=== PATIENT | male | born 1960 | race Caucasian/White ===

== ENCOUNTER 2018-11-19 20:26 | Inpatient (IN) | payer OTHER ==
[~2018-11-19] VITALS: Ht 193 cm; Wt 142.0 kg
[~2018-11-19 20:26] MED LIST: IBUP-1969 PO; METF-379 PO; NEU300 PO; SIMV10TA2 PO
[2018-11-19 20:36] VITALS: BP_SYST 141
[2018-11-19] MEDS ORDERED: PIPERACILLIN/TAZO 3.38 GM in D5W 50 ML IV ONE (21:00)
[2018-11-19] MEDS ORDERED: VANCOMYCIN HCL 1,000 MG in D5W 250 ML IV ONE (21:00)
[2018-11-19] MEDS ORDERED: NS 1000 ML IV.SOLN IV ONE (21:00)
[2018-11-19] MEDS ORDERED: ACETAMINOPHEN 325 MG TABLET PO ONE (21:00)
[2018-11-19 21:01] LABS: BILIRUBIN,URINE NEGATIVE (NEGATIVE); BLOOD, URINE 2+ (NEGATIVE); CLARITY/URINE SL CLOUDY (CLEAR); COLOR,URINE YELLOW (YELLOW); GLUCOSE,URINE 3+ (NEGATIVE); KETONES,URINE 1+ (NEGATIVE); LEUKOCYTE ESTERASE ,URINE 1+ (NEGATIVE); NITRITE, URINE POSITIVE (NEGATIVE); PH,URINE 5.5 (5.0-8.0); PROTEIN URINE 1+ (NEGATIVE); UROBILINOGEN,URINE 0.2 (0.2-1.0)
[2018-11-19 21:06] LABS: BACTERIA,URINE MODERATE /HPF (None Seen); WBC,URINE 50-80 /HPF (0-3)
[2018-11-19 21:21] LABS: HEMATOCRIT 40.7 % (36-54); HEMOGLOBIN 14.1 g/dL (14.0-18.0); MEAN CORPUSCULAR HEMOGLOBIN 31 pg (27-31); MEAN CORPUSCULAR HGB CONC 35 % (32-36); MEAN CORPUSCULAR VOLUME 89 fL (79.0-98.0); PLATELET COUNT (AUTO) 234 K/uL (130-430); RED BLOOD CELL COUNT(AUTO) 4.59 MIL/uL (4.2-6.2); RED CELL DISTRIBUTION WIDTH 13.3 % (9.0-15.0); WHITE BLOOD COUNT (AUTO) 17.9 K/uL (4.8-10.8)
[2018-11-19] MEDS ORDERED: PIPERACILLIN/TAZOBACTAM 3.375 GM/VIAL (ZOSYN) IV ONE (21:24)
[2018-11-19 21:36] LABS: CALCIUM 8.8 mg/dL (8.4-11.0); CREATININE 1.13 mg/dL (0.55-1.30); POTASSIUM 3.5 mmol/L (3.5-5.1)
[2018-11-19] MEDS ORDERED: VANCOMYCIN HCL 1000 MG/VIAL IV ONE (21:36)
[2018-11-19 21:38] LABS: INR 1.1 (0.80-1.20); PROTHROMBIN TIME 10.9 SECS (9.5-12.5)
[2018-11-19 21:40] LABS: ALBUMIN 3.3 g/dL (3.4-4.8); TOTAL BILIRUBIN 1.2 mg/dL (0.0-1.0)
[2018-11-19] MEDS ORDERED: GABA800T PO (21:44)
[2018-11-19] MEDS ORDERED: MULT-1089 PO (21:44)
[2018-11-19] MEDS ORDERED: ASCO500T20 PO (21:44)
[2018-11-19] MEDS ORDERED: AMIT25TA9 PO (21:44)
[2018-11-19] MEDS ORDERED: GLU850 PO (21:44)
[2018-11-19] MEDS ORDERED: SIMV10TA2 PO (21:44)
[2018-11-19] MEDS ORDERED: HYDR25TA4 PO (21:45)
[2018-11-19] MEDS ORDERED: LUTE20TA PO (21:45)
[2018-11-19] MEDS ORDERED: RIVA20TA PO (21:45)
[2018-11-19] MEDS ORDERED: TAMS-11 PO (21:45)
[2018-11-19] MEDS ORDERED: SAXA5TAB PO (21:45)
[2018-11-19] MEDS ORDERED: GLIM1TAB PO (21:45)
[2018-11-19] MEDS ORDERED: MAGN400T10 PO (21:45)
[2018-11-19] MEDS ORDERED: FOLI-43 PO (21:45)
[2018-11-19] MEDS ORDERED: KRIL1CAP22 PO (21:45)
[2018-11-19] MEDS ORDERED: VITD2000 PO (21:45)
[2018-11-19 21:49] LABS: BAND % (MANUAL) 8 % (0-6); LYMPHOCYTES % (MANUAL) 14 % (20-46)
[2018-11-19 21:50] LABS: BASOPHILS % (MANUAL) 0 % (0-2); EOSINOPHILS % (MANUAL) 0 % (0-7); MONOCYTES % (MANUAL) 10 % (0-11)
[2018-11-20] VITALS (8 sets, daily range): BP systolic 126–150
[2018-11-20] MEDS ORDERED: ALBUTEROL SULFATE 0.083% 2.5 MG/3 ML VIAL.NEB INH PRN (00:15)
[2018-11-20] MEDS: NACL 0.9% 1,000 ML IV SCH ×4 (00:49→23:30)
[2018-11-20] MEDS: HYDROcodone/ACETAMIN 10-325 MG TAB PO PRN (03:35)
[2018-11-20] MEDS ORDERED: PIPERACILLIN/TAZOBACTAM 3.375 GM/VIAL (ZOSYN) IV ONE (05:39)
[2018-11-20] MEDS ORDERED: ZOSYN (PIPERACILLIN/TAZO) 3.375 GM in DEX-ISO (50ml) IV SCH (06:00)
[2018-11-20] MEDS: PIPERACILLIN/TAZO 3.375/DEX-IS 50 ML IV SCH ×4 (06:15→23:29)
[2018-11-20 06:42] LABS: BASOPHILS # (AUTO) 0.1 K/uL (0.0-0.2); BASOPHILS % (AUTO) 0.4 % (0.0-2.0); EOSINOPHILS # (AUTO) 0.1 K/uL (0.0-0.4); EOSINOPHILS % (AUTO) 0.9 % (0.0-4.0); HEMATOCRIT 37.6 % (36-54); HEMOGLOBIN 12.6 g/dL (14.0-18.0); LYMPHOCYTES # (AUTO) 1.9 K/uL (1.0-5.5); MEAN CORPUSCULAR HEMOGLOBIN 30 pg (27-31); MEAN CORPUSCULAR HGB CONC 34 % (32-36); MEAN CORPUSCULAR VOLUME 89 fL (79.0-98.0); MONOCYTES # (AUTO) 1.5 K/uL (0.0-1.0); MONOCYTES % (AUTO) 9.1 % (1.7-9.3); NEUTROPHILS # (AUTO) 12.6 K/uL (1.8-7.7); NEUTROPHILS % (AUTO) 77.6 % (40.0-70.0); PLATELET COUNT (AUTO) 200 K/uL (130-430); RED CELL DISTRIBUTION WIDTH 12.9 % (9.0-15.0); WHITE BLOOD COUNT (AUTO) 16.2 K/uL (4.8-10.8)
[2018-11-20] MEDS: HYDROcodone/ACETAMIN 5-325 MG TAB (NORCO/ VICODIN) PO PRN ×3 (07:39→17:18)
[2018-11-20 08:05] LABS: ALBUMIN 2.8 g/dL (3.4-4.8); CALCIUM 8.5 mg/dL (8.4-11.0); CREATININE 0.75 mg/dL (0.55-1.30); POTASSIUM 3.4 mmol/L (3.5-5.1); TOTAL BILIRUBIN 1.3 mg/dL (0.0-1.0)
[2018-11-20] MEDS: AMITRIPTYLINE HCL 25 MG TABLET (ELAVIL) PO SCH (08:38)
[2018-11-20] MEDS: SIMVASTATIN 10 MG TABLET PO SCH (08:38)
[2018-11-20] MEDS: FOLIC ACID 1 MG TABLET PO SCH (08:39)
[2018-11-20] MEDS: GLIMEPIRIDE 2 MG TABLET PO SCH (08:39)
[2018-11-20] MEDS: GABAPENTIN 400 MG CAPSULE PO SCH ×4 (08:39→20:04)
[2018-11-20] MEDS: TAMSULOSIN HCL 0.4 MG CAP PO SCH (08:40)
[2018-11-20] MEDS: INSULIN REGULAR, HUMAN 100 UNITS/ML, 10 ML VIAL (novoLIN R) SUBCUT PRN ×3 (11:46→20:06)
[2018-11-20] MEDS: RIVAROXABAN 10 MG TABLET PO SCH (17:28)
[2018-11-21 01:31] VITALS: BP_SYST 120
[2018-11-21 01:34] VITALS: BP_SYST 142
[2018-11-21] MEDS: ACETAMINOPHEN 325 MG TABLET PO PRN ×3 (02:19→15:45)
[2018-11-21] MEDS: PIPERACILLIN/TAZO 3.375/DEX-IS 50 ML IV SCH ×4 (06:09→23:06)
[2018-11-21] MEDS: NACL 0.9% 1,000 ML IV SCH ×3 (06:10→23:05)
[2018-11-21] MEDS: INSULIN REGULAR, HUMAN 100 UNITS/ML, 10 ML VIAL (novoLIN R) SUBCUT PRN ×4 (06:13→19:58)
[2018-11-21 06:25] LABS: BASOPHILS # (AUTO) 0.1 K/uL (0.0-0.2); BASOPHILS % (AUTO) 0.4 % (0.0-2.0); EOSINOPHILS # (AUTO) 0.1 K/uL (0.0-0.4); HEMATOCRIT 35.4 % (36-54); HEMOGLOBIN 12.1 g/dL (14.0-18.0); LYMPHOCYTES # (AUTO) 1.9 K/uL (1.0-5.5); LYMPHOCYTES % (AUTO) 13.9 % (20.5-51.5); MEAN CORPUSCULAR HEMOGLOBIN 31 pg (27-31); MEAN CORPUSCULAR HGB CONC 34 % (32-36); MEAN CORPUSCULAR VOLUME 90 fL (79.0-98.0); MONOCYTES # (AUTO) 1.6 K/uL (0.0-1.0); MONOCYTES % (AUTO) 11.3 % (1.7-9.3); NEUTROPHILS # (AUTO) 10.1 K/uL (1.8-7.7); NEUTROPHILS % (AUTO) 73.4 % (40.0-70.0); PLATELET COUNT (AUTO) 191 K/uL (130-430); RED BLOOD CELL COUNT(AUTO) 3.93 MIL/uL (4.2-6.2); RED CELL DISTRIBUTION WIDTH 12.8 % (9.0-15.0); WHITE BLOOD COUNT (AUTO) 13.7 K/uL (4.8-10.8)
[2018-11-21 07:20] LABS: ALBUMIN 2.7 g/dL (3.4-4.8); CALCIUM 8.2 mg/dL (8.4-11.0); CREATININE 0.91 mg/dL (0.55-1.30); POTASSIUM 3.5 mmol/L (3.5-5.1); TOTAL BILIRUBIN 1.2 mg/dL (0.0-1.0)
[2018-11-21 08:12] VITALS: BP_SYST 141
[2018-11-21] MEDS: FOLIC ACID 1 MG TABLET PO SCH (08:31)
[2018-11-21] MEDS: AMITRIPTYLINE HCL 25 MG TABLET (ELAVIL) PO SCH (08:32)
[2018-11-21] MEDS: SIMVASTATIN 10 MG TABLET PO SCH (08:32)
[2018-11-21] MEDS: GLIMEPIRIDE 2 MG TABLET PO SCH (08:32)
[2018-11-21] MEDS: GABAPENTIN 400 MG CAPSULE PO SCH ×4 (08:32→19:59)
[2018-11-21] MEDS: TAMSULOSIN HCL 0.4 MG CAP PO SCH (08:34)
[2018-11-21] MEDS ORDERED: GENTAMICIN SULFATE 300 MG in NS 100 ML IV ONE (09:30)
[2018-11-21] MEDS ORDERED: POLYETHYLENE GLYCOL 3350, 17 GM/ POWD.PACK PO ONE (10:00)
[2018-11-21] MEDS ORDERED: MINERAL OIL 30 ML UDC PO ONE (10:00)
[2018-11-21 12:36] VITALS: BP_SYST 136
[2018-11-21 15:59] VITALS: BP_SYST 116
[2018-11-21] MEDS: HYDROcodone/ACETAMIN 5-325 MG TAB (NORCO/ VICODIN) PO PRN (17:00)
[2018-11-21] MEDS: RIVAROXABAN 10 MG TABLET PO SCH (17:05)
[2018-11-21] MEDS: MINERAL OIL 30 ML UDC PO SCH (19:59)
[2018-11-21 20:00] VITALS: BP_SYST 121
[2018-11-21] MEDS: HYDROcodone/ACETAMIN 10-325 MG TAB PO PRN (23:04)
[2018-11-22 00:31] VITALS: BP_SYST 135
[2018-11-22] MEDS: ACETAMINOPHEN 325 MG TABLET PO PRN (04:23)
[2018-11-22] MEDS: PIPERACILLIN/TAZO 3.375/DEX-IS 50 ML IV SCH ×3 (05:26→17:48)
[2018-11-22] MEDS: HYDROcodone/ACETAMIN 10-325 MG TAB PO PRN ×2 (05:46→21:43)
[2018-11-22] MEDS: INSULIN REGULAR, HUMAN 100 UNITS/ML, 10 ML VIAL (novoLIN R) SUBCUT PRN ×3 (06:14→21:38)
[2018-11-22 06:40] LABS: BASOPHILS % (AUTO) 0.4 % (0.0-2.0); EOSINOPHILS # (AUTO) 0.3 K/uL (0.0-0.4); EOSINOPHILS % (AUTO) 2.8 % (0.0-4.0); HEMATOCRIT 34.4 % (36-54); HEMOGLOBIN 11.9 g/dL (14.0-18.0); LYMPHOCYTES # (AUTO) 1.4 K/uL (1.0-5.5); LYMPHOCYTES % (AUTO) 15.1 % (20.5-51.5); MEAN CORPUSCULAR HEMOGLOBIN 31 pg (27-31); MEAN CORPUSCULAR HGB CONC 35 % (32-36); MEAN CORPUSCULAR VOLUME 89 fL (79.0-98.0); MONOCYTES # (AUTO) 1.2 K/uL (0.0-1.0); MONOCYTES % (AUTO) 12.7 % (1.7-9.3); NEUTROPHILS # (AUTO) 6.4 K/uL (1.8-7.7); PLATELET COUNT (AUTO) 197 K/uL (130-430); RED BLOOD CELL COUNT(AUTO) 3.86 MIL/uL (4.2-6.2); RED CELL DISTRIBUTION WIDTH 12.8 % (9.0-15.0); WHITE BLOOD COUNT (AUTO) 9.3 K/uL (4.8-10.8)
[2018-11-22 07:00] LABS: CALCIUM 8.2 mg/dL (8.4-11.0); CREATININE 0.95 mg/dL (0.55-1.30); POTASSIUM 4.2 mmol/L (3.5-5.1)
[2018-11-22 07:15] LABS: ALBUMIN 2.5 g/dL (3.4-4.8)
[2018-11-22 08:00] VITALS: BP_SYST 131
[2018-11-22] MEDS: MINERAL OIL 30 ML UDC PO SCH ×2 (08:25→21:00)
[2018-11-22] MEDS: POLYETHYLENE GLYCOL 3350, 17 GM/ POWD.PACK PO SCH (08:25)
[2018-11-22] MEDS: ONDANSETRON HCL 4 MG/2 ML VIAL IVP PRN ×2 (08:57→13:08)
[2018-11-22] MEDS: TAMSULOSIN HCL 0.4 MG CAP PO SCH (09:00)
[2018-11-22] MEDS: FOLIC ACID 1 MG TABLET PO SCH (09:00)
[2018-11-22] MEDS: AMITRIPTYLINE HCL 25 MG TABLET (ELAVIL) PO SCH (09:00)
[2018-11-22] MEDS: GLIMEPIRIDE 2 MG TABLET PO SCH (09:00)
[2018-11-22] MEDS: SIMVASTATIN 10 MG TABLET PO SCH (09:00)
[2018-11-22] MEDS: GABAPENTIN 400 MG CAPSULE PO SCH ×4 (09:01→21:42)
[2018-11-22] MEDS: NACL 0.9% 1,000 ML IV SCH ×2 (09:01→17:09)
[2018-11-22] MEDS ORDERED: GENTAMICIN SULFATE 300 MG in NS 100 ML IV ONE (09:15)
[2018-11-22 12:50] VITALS: BP_SYST 139
[2018-11-22 16:35] VITALS: BP_SYST 131
[2018-11-22] MEDS: RIVAROXABAN 10 MG TABLET PO SCH (17:48)
[2018-11-22 20:05] VITALS: BP_SYST 112
[2018-11-22 23:17] VITALS: BP_SYST 145
[2018-11-23] MEDS: PIPERACILLIN/TAZO 3.375/DEX-IS 50 ML IV SCH ×3 (00:11→11:39)
[2018-11-23] MEDS: NACL 0.9% 1,000 ML IV SCH ×2 (01:39→09:13)
[2018-11-23] MEDS: HYDROcodone/ACETAMIN 10-325 MG TAB PO PRN (04:54)
[2018-11-23 06:49] LABS: BASOPHILS # (AUTO) 0.1 K/uL (0.0-0.2); BASOPHILS % (AUTO) 0.7 % (0.0-2.0); EOSINOPHILS # (AUTO) 0.3 K/uL (0.0-0.4); EOSINOPHILS % (AUTO) 3.1 % (0.0-4.0); HEMATOCRIT 34.2 % (36-54); HEMOGLOBIN 11.8 g/dL (14.0-18.0); LYMPHOCYTES # (AUTO) 1.8 K/uL (1.0-5.5); LYMPHOCYTES % (AUTO) 19.5 % (20.5-51.5); MEAN CORPUSCULAR HEMOGLOBIN 31 pg (27-31); MEAN CORPUSCULAR HGB CONC 34 % (32-36); MEAN CORPUSCULAR VOLUME 89 fL (79.0-98.0); MONOCYTES # (AUTO) 1.3 K/uL (0.0-1.0); MONOCYTES % (AUTO) 14.4 % (1.7-9.3); NEUTROPHILS # (AUTO) 5.6 K/uL (1.8-7.7); NEUTROPHILS % (AUTO) 62.3 % (40.0-70.0); PLATELET COUNT (AUTO) 218 K/uL (130-430); RED BLOOD CELL COUNT(AUTO) 3.84 MIL/uL (4.2-6.2); RED CELL DISTRIBUTION WIDTH 12.6 % (9.0-15.0)
[2018-11-23 07:26] LABS: ALBUMIN 2.6 g/dL (3.4-4.8); CALCIUM 8.5 mg/dL (8.4-11.0); CREATININE 0.88 mg/dL (0.55-1.30); POTASSIUM 4.1 mmol/L (3.5-5.1); TOTAL BILIRUBIN 0.8 mg/dL (0.0-1.0)
[2018-11-23 08:00] VITALS: BP_SYST 148
[2018-11-23] MEDS: MINERAL OIL 30 ML UDC PO SCH (09:00)
[2018-11-23] MEDS: SIMVASTATIN 10 MG TABLET PO SCH (09:13)
[2018-11-23] MEDS: AMITRIPTYLINE HCL 25 MG TABLET (ELAVIL) PO SCH (09:13)
[2018-11-23] MEDS: GABAPENTIN 400 MG CAPSULE PO SCH ×2 (09:13→12:57)
[2018-11-23] MEDS: FOLIC ACID 1 MG TABLET PO SCH (09:13)
[2018-11-23] MEDS: TAMSULOSIN HCL 0.4 MG CAP PO SCH (09:14)
[2018-11-23] MEDS: GLIMEPIRIDE 2 MG TABLET PO SCH (09:14)
[2018-11-23] MEDS: ACETAMINOPHEN 325 MG TABLET PO PRN (09:15)
[2018-11-23] MEDS: POLYETHYLENE GLYCOL 3350, 17 GM/ POWD.PACK PO SCH (09:15)
[2018-11-23] MEDS ORDERED: GENTAMICIN SULFATE 300 MG in NS 100 ML IV ONE (09:45)
[2018-11-23] MEDS: INSULIN REGULAR, HUMAN 100 UNITS/ML, 10 ML VIAL (novoLIN R) SUBCUT PRN (11:38)
[2018-11-23 12:41] VITALS: BP_SYST 148
[2018-11-23 12:50] VITALS: BP_SYST 130; BP_SYST 134
[2018-11-23] MEDS ORDERED: LEVO750T45 PO (14:06)
[2018-11-23 15:19] VITALS: BP_SYST 121
== END 2018-11-23 16:12 | disposition home or self-care (01) | DRG 872 ==
LOC: SED 20:26 → STU 23:05 → SMU 11-20 10:40
PROVIDERS: ADMIT Internal Medicine; ATTEND Internal Medicine
DX: A41.51 Sepsis due to Escherichia coli [E. coli] (principal); N39.0 Urinary tract infection, site not specified; E86.0 Dehydration; E11.9 Type 2 diabetes mellitus without complications; I10 Essential (primary) hypertension; N40.0 Benign prostatic hyperplasia without lower urinary tract symptoms; Z83.3 Family history of diabetes mellitus; Z86.718 Personal history of other venous thrombosis and embolism; Z79.01 Long term (current) use of anticoagulants; Z79.899 Other long term (current) drug therapy
CPT/HCPCS: 36415; 71045; 80053; 81000-TC; 82962; 83605; 84484; 85007; 85025; 85027; 85610-TC; 85730-TC; 87040-TC; 87086; 87186-TC; 93005; 96365; 96368; 99291; G0378; J1580; J1815; J2405; J2543; J3370; J7030; J7060

== ENCOUNTER 2021-03-17 20:20 | Emergency (ER) | payer OTHER ==
[~2021-03-17] VITALS: Ht 193 cm; Wt 126.6 kg
[~2021-03-17 20:20] MED LIST changes: +AMIT25TA9 PO; +ASCO500T20 PO; +FOLI-43 PO; +GABA800T PO; +GLIM1TAB PO; +GLU850 PO; +HYDR25TA4 PO; -IBUP-1969 PO; +KRIL1CAP22 PO; +LEVO750T45 PO; +LUTE20TA PO; +MAGN400T10 PO; -METF-379 PO; +MULT-1089 PO; -NEU300 PO; +RIVA20TA PO; +SAXA5TAB PO; +TAMS-11 PO; +VITD2000 PO
[2021-03-17 20:38] VITALS: BP_SYST 164
[2021-03-17] MEDS ORDERED: KETOROLAC TROMETHAMINE 60 MG/2 ML VIAL IM ONE (22:30)
[2021-03-17] MEDS ORDERED: NAPR-1172 PO (23:46)
[2021-03-17 23:50] VITALS: BP_SYST 164
== END 2021-03-17 23:50 | disposition home or self-care (01) ==
LOC: SED 20:20
DX: S32.059A Unspecified fracture of fifth lumbar vertebra, initial encounter for closed fracture (principal); M54.2 Cervicalgia; E11.9 Type 2 diabetes mellitus without complications; Z79.899 Other long term (current) drug therapy; Z79.84 Long term (current) use of oral hypoglycemic drugs; V49.59XA Passenger injured in collision with other motor vehicles in traffic accident, initial encounter; Y93.89 Activity, other specified; Y92.89 Other specified places as the place of occurrence of the external cause; Y99.8 Other external cause status
CPT/HCPCS: 72040; 72100; 96372; 99284; J1885

== ENCOUNTER 2021-05-13 11:15 | Day surgery (SDC) | payer OTHER, SELFPAY ==
[~2021-05-13] VITALS: Ht 193 cm; Wt 127.0 kg
[~2021-05-13 11:15] MED LIST changes: +CEFAZOLIN SOD 2 GM in D5W 50 ML IV ONE; +NAPR-1172 PO
[2021-05-13] MEDS ORDERED: PROPOFOL 200MG/ 20ML VIAL (DIPRIVAN) IV ONE (14:30)
[2021-05-13] MEDS ORDERED: BUPIVACAINE /EPINEPHRINE/PF 0.25% 30 ML VIAL INJ ONE (14:30)
[2021-05-13] MEDS ORDERED: SEVOFLURANE 15 MIN GAS INH ONE (14:30)
[2021-05-13] MEDS ORDERED: DEXAMETHASONE SOD PHOSPHATE 4 MG/ML VIAL IVP ONE (14:30)
[2021-05-13] MEDS ORDERED: MEPERIDINE 50 MG/ML VIAL IM ONE (14:30)
[2021-05-13] MEDS ORDERED: ONDANSETRON HCL 4 MG/2 ML VIAL IVP ONE (14:30)
[2021-05-13] MEDS ORDERED: MIDAZOLAM HCL 5 MG/5 ML VIAL IVP ONE (14:30)
[2021-05-13] MEDS ORDERED: fentaNYL CITRATE/PF 100 MCG/2 ML AMP IVP ONE (14:30)
[2021-05-13] MEDS ORDERED: LR 1,000 ML IV.SOLN IV ONE (14:30)
[2021-05-13] MEDS ORDERED: WATER FOR IRRIGATION,STERILE 1,000 ML IRRIG.SOLN IR ONE (14:30)
[2021-05-13] MEDS ORDERED: METOCLOPRAMIDE HCL 10 MG/2 ML VIAL IVP PRN (15:15)
[2021-05-13] MEDS ORDERED: LR 1,000 ML IV SCH (15:15)
[2021-05-13] MEDS ORDERED: MEPERIDINE HCL/PF 25 MG/ML DISP.SYRIN IVP PRN (15:15)
[2021-05-13] MEDS ORDERED: HYDROmorphone 1 MG/ML INJ. CARTRIDGE IVP PRN (15:15)
[2021-05-13] MEDS ORDERED: KETOROLAC TROMETHAMINE 30 MG VIAL IVP PRN (15:15)
[2021-05-13] MEDS ORDERED: ONDANSETRON HCL 4 MG/2 ML VIAL IVP PRN (15:15)
[2021-05-13 16:38] VITALS: BP_SYST 125
== END 2021-05-13 18:15 | disposition home or self-care (01) ==
LOC: SDS 11:15 → SMU 11:17 → SDS 18:15
PROVIDERS: ATTEND Surgery
DX: R22.1 Localized swelling, mass and lump, neck (principal); R22.2 Localized swelling, mass and lump, trunk; E78.5 Hyperlipidemia, unspecified; E11.9 Type 2 diabetes mellitus without complications; L72.0 Epidermal cyst; Z86.718 Personal history of other venous thrombosis and embolism; E66.9 Obesity, unspecified; Z68.34 Body mass index [BMI] 34.0-34.9, adult; Z79.899 Other long term (current) drug therapy; Z20.822 Contact with and (suspected) exposure to COVID-19
CPT/HCPCS: 11403; 11421; 11422; 36415; 82962; 87426; 88304; J0690; J1100; J2175; J2250; J2405; J2704; J3010; J3490; J7060; J7120; 88305